=== PATIENT | male | born 1970 | race Caucasian/White ===

== ENCOUNTER 2020-01-23 13:53 | Emergency (ER) | payer BC ==
[2020-01-23] MEDS ORDERED: Doxycycline Monohydrate 100 MG Cap PO ONE (14:08)
[2020-01-23] MEDS ORDERED: Bacitracin Oint 1 GM U/D Packet TOP ONE (14:08)
[2020-01-23] MEDS ORDERED: Clindamycin HCl 150 MG Cap PO ONE (14:08)
[2020-01-23] MEDS ORDERED: Lidocaine 1% 30 ML SDV INJECT ONE (14:08)
[2020-01-23] MEDS ORDERED: Ibuprofen 800 MG Tab PO ONE (14:10)
[2020-01-23 14:40] LABS: ANION GAP 14.7 mEq/L (7-13); CHLORIDE,CL 98 mmol/L (98-107); SODIUM,NA 134 mmol/L (136-145)
--- NOTE | 2020-01-23 14:42 | EDM.PDOC ---
Scribed by Estrella Wilson 01/23/20 6220 for Ried Hunter MD ED HPI GENERAL MEDICAL PROBLEM - General Chief Complaint: Skin Complaint Stated Complaint: BUG BITE FINGER Time Seen by Provider: 01/23/20 13:59 Source of Information: Reports: Patient, RN, RN Notes Reviewed History Limitations: Reports: No Limitations - History of Present Illness INITIAL COMMENTS - FREE TEXT/NARRATIVE: Patient presents to ED by POV stating he was bitten by bug on neck last week and wiping it off with hand, causing subsequent bite to right hand third distal finger. Last night it began to collect clear yellow fluid. Denies fever but last night started with joint aches, fatigue, chills and sweats. No shortness of breath, sore throat, cough, nausea, vomiting or diarrhea. No abdominal pain. He had negative COVID test last month. No known exposure since then. Onset: Gradual Duration: Getting Worse Location: Reports: Upper Extremity, Right Quality: Reports: Ache Severity: Moderate Improves with: Reports: None Worsens with: Reports: None Associated Symptoms: Reports: No Other Symptoms - Related Data Allergies Allergy/AdvReac Type Severity Reaction Status Date / Time No Known Allergies Allergy Verified 01/23/20 14:07 Home Meds: Home Meds lisinopriL [Lisinopril] 10 mg PO DAILY 01/23/20 [History] Past Medical History Cardiovascular History: Reports: Hypertension Social & Family History - Family History Family Medical History: Noncontributory - Living Situation & Occupation Living situation: Reports: with Family Occupation: Other (Fair) ED ROS GENERAL - Review of Systems Review Of Systems: Comprehensive ROS is negative, except as noted in HPI. ED EXAM, SKIN/RASH Exam: See Below Exam Limited By: No Limitations General Appearance: Alert, WD/WN, No Apparent Distress Head: Atraumatic, Normocephalic Neck: Normal Inspection, Full Range of Motion Respiratory/Chest: No Respiratory Distress Cardiovascular: Normal Peripheral Pulses, Regular Rate, Rhythm Extremities: Normal Range of Motion, Normal Capillary Refill, Increased Warmth, Redness, Other (Right 3rd distal finger dorsal surface has a 1.5cm x 1.8cm purplish bulla with purlent appearing cloudy effusion and surrounding erythema extending to the base of the finger across the dorsal hand to the wrist. ). No: Joint Swelling Neurological: Alert, Oriented Psychiatric: Normal Affect Skin: Warm, Dry ED SKIN PROCEDURES - I&D Site: Right distal 3rd finger dorsal surface Skin Prep: Chlorhexidine (Hibiciens), Saline, Sterile Drape Local Anesthesia: Lidocaine: 1% Plain Local Anesthetic Volume: 4cc (digital block) Area Incised With: 11 Blade Drainage: Purulent, Bloody, Small Amount Probed to Break Up Loculations: Yes Packed With: None Sterile Dressing: Adhesive Dressing Complications: No Course - Vital Signs Last Recorded V/S: Last Vital Signs Temp 99.0 F 01/23/20 14:03 Pulse 97 01/23/20 14:03 Resp 18 01/23/20 14:03 BP 176/88 H 01/23/20 14:03 Pulse Ox 96 01/23/20 14:03 - Orders/Labs/Meds Orders: Active Orders 24 hr Category Date Time Status C-REACTIVE PROTEIN [CHEM] Stat Lab 01/23/20 14:15 Received COMPREHENSIVE METABOLIC PN,CMP [CHEM] Stat Lab 01/23/20 14:15 Received CULTURE WOUND [RM] Stat Lab 01/23/20 14:06 Ordered Labs: Laboratory Tests 01/23/20 Range/Units 14:15 WBC 9.2 (5.0-10.0) 10^3/uL RBC 4.77 (4.6-6.2) 10^6/uL Hgb 14.3 (14.0-18.0) g/dL Hct 41.7 (40.0-54.0) % MCV 87.4 (80-100) fL MCH 30.0 (27.0-34.0) pg MCHC 34.3 (33.0-35.0) g/dL Plt Count 249 (150-450) 10^3/uL Neut % (Auto) 76.5 H (42.2-75.2) % Lymph % (Auto) 11.9 L (20.5-50.1) % [place] % (Auto) 10.2 H (2-8) % Eos % (Auto) 0.9 L (1.0-3.0) % Baso % (Auto) 0.5 (0.0-1.0) % Meds: Medications Discontinued Medications Generic Name Dose Route Start Last Admin Trade Name Freq PRN Reason Stop Dose Admin Bacitracin 1 dose 01/23/20 14:08 01/23/20 14:20 Bacitracin Oint 1 Gm TOP 01/23/20 14:09 1 dose ONETIME ONE Administration Clindamycin HCl 300 mg 01/23/20 14:08 01/23/20 14:20 Cleocin PO 01/23/20 14:09 300 mg ONETIME ONE Administration Doxycycline Monohydrate 100 mg 01/23/20 14:08 01/23/20 14:20 Doxycycline Monohydrate PO 01/23/20 14:09 100 mg ONETIME ONE Administration Ibuprofen 800 mg 01/23/20 14:10 01/23/20 14:20 Motrin PO 01/23/20 14:11 800 mg ONETIME ONE Administration Lidocaine HCl 30 ml 01/23/20 14:08 01/23/20 14:20 Xylocaine-Mpf 1% INJECT 01/23/20 14:09 30 ml ONETIME ONE Administration Departure - Departure Time of Disposition: 14:39 Disposition: Home, Self-Care 01 Condition: Good Clinical Impression: Insect bite finger-infected, Cellulitis and abscess of finger, unspecified - Discharge Information *PRESCRIPTION DRUG MONITORING PROGRAM REVIEWED*: Not Applicable *COPY OF PRESCRIPTION DRUG MONITORING REPORT IN PATIENT ISABELLE: Not Applicable Instructions: Incision and Drainage, Care After, Skin Abscess, [id number]-Tjka, Insect Bite, Adult Forms: ED Department Discharge Additional Instructions: Rx: Clindamycin 300mg Rx: Doxycycline 100mg Rx: Bactroban Ointment 2% Use Tylenol (Acetaminophen) and Ibuprofen (Motrin/Advil) as needed for pain. Follow directions on package label for dosing and precautions. Follow up in clinic in 3 to 4 days if not improving as expected. Sepsis Event Note (ED) - Focused Exam Vital Signs: Vital Signs Temp Pulse Resp BP Pulse Ox 01/23/20 14:03 99.0 F 97 18 176/88 H 96 - My Orders Last 24 Hours: My Active Orders 01/23/20 14:06 CULTURE WOUND [RM] Stat 01/23/20 14:15 C-REACTIVE PROTEIN [CHEM] Stat COMPREHENSIVE METABOLIC PN,CMP [CHEM] Stat - Assessment/Plan Last 24 Hours: My Active Orders 01/23/20 14:06 CULTURE WOUND [RM] Stat 01/23/20 14:15 C-REACTIVE PROTEIN [CHEM] Stat COMPREHENSIVE METABOLIC PN,CMP [CHEM] Stat I have read and agree with the documentation that has been completed regarding this visit. By signing this record, I attest that the documentation was completed in my physical presence and is an accurate record of the encounter.
== END 2020-01-23 14:51 | disposition home or self-care (01) ==
LOC: DL.ED 13:53
DX: S60.462A Insect bite (nonvenomous) of right middle finger, initial encounter (principal); L02.511 Cutaneous abscess of right hand; L03.011 Cellulitis of right finger; I10 Essential (primary) hypertension; Z79.899 Other long term (current) drug therapy; W57.XXXA Bitten or stung by nonvenomous insect and other nonvenomous arthropods, initial encounter
CPT/HCPCS: 26010; 36415; 80053; 85025; 86140; 87070; 99283; A9270; J2001